=== PATIENT | male | born 1990 | race Caucasian/White ===

== ENCOUNTER 2018-05-09 17:22 | Inpatient (IN) | payer MEDICAID ==
[2018-05-09 18:23] LABS: BASO # 0.1 K/uL (0.0-0.2); BASO % 0.6 % (0.0-2.0); EOS # 0.1 K/uL (0.0-0.7); EOS % 0.5 % (0.0-4.0); HEMOGLOBIN 16.3 g/dL (12.0-18.0); LYMPH # 5.1 K/uL (1.0-4.3); LYMPH % 26.3 % (20.0-40.0); MEAN CELL VOLUME 86.9 fL (80.0-94.0); MEAN CORPUSCULAR HEMOGLOBIN 29.9 pg (27.0-31.0); MEAN CORPUSCULAR HGB CONC 34.4 g/dL (33.0-37.0); MEAN PLATELET VOLUME 7.8 fL (7.2-11.7); NEUT # 13.1 K/uL (1.8-7.0); NEUT % 67.6 % (50.0-75.0); NRBC % 0.1 % (0.0-2.0); RBC 5.47 Mil/uL (4.40-5.90); RED CELL DISTRIBUTION WIDTH 13.2 % (11.5-14.5); WHITE BLOOD COUNT 19.3 K/uL (4.8-10.8)
[2018-05-09 18:44] LABS: BARBITURATES, UR NEGATIVE (NEGATIVE); OPIATES, UR NEGATIVE (NEGATIVE); PHENCYCLIDINE, UR NEGATIVE (NEGATIVE)
[2018-05-09 18:46] LABS: BENZODIAZEPINES, UR POSITIVE (NEGATIVE)
[2018-05-09 18:47] LABS: ALB/GLOB RATIO 1.3 (1.0-2.1); ALBUMIN 5.1 g/dL (3.5-5.0); ALT/SGPT 73 U/L (21-72); AST/SGOT 48 U/L (17-59); BLOOD UREA NITROGEN 18 mg/dL (9-20); CALCIUM 9.7 mg/dl (8.6-10.4); GFR NON-AFRICAN AMERICAN > 60
[2018-05-09 18:59] LABS: SQUAMOUS EPITHIAL < 1 /hpf (0-5); URINE BACTERIA OCC (<OCC); URINE BILIRUBIN NEGATIVE (NEGATIVE); URINE BLOOD NEGATIVE (NEGATIVE); URINE CLARITY Clear (Clear); URINE COLOR Yellow (YELLOW); URINE GLUCOSE (UA) NORMAL (Normal); URINE PROTEIN NEGATIVE (NEGATIVE); URINE UROBILINOGEN NORMAL mg/dL (0.2-1.0)
[2018-05-09 19:02] LABS: URINE LEUKOCYTE ESTERASE NEGATIVE Leu/uL (Negative)
--- NOTE | 2018-05-09 19:52 | C.PDOC ---
History Of Present Illness 28yo male, comes to ER requesting detox from methadone, benzos and cocaine. He denies any suicidal or homicidal ideation and offers no medical complaints at present. Time Seen by Provider: 05/09/18 17:55 Chief Complaint (Nursing): Substance Abuse History Per: Patient History/Exam Limitations: no limitations Onset/Duration Of Symptoms: Persistent Past Medical History Reviewed: Historical Data, Nursing Documentation, Vital Signs Vital Signs: Last Vital Signs Temp 98.7 F 05/09/18 20:11 Pulse 68 05/09/18 20:11 Resp 16 05/09/18 20:11 BP 119/76 05/09/18 20:11 Pulse Ox 95 05/09/18 20:11 - Medical History PMH: Anxiety, Asthma, Bipolar Disorder, HTN, Post Traumatic Stress Disorder Surgical History: No Surg Hx Family History: States: No Known Family Hx - Social History Hx Alcohol Use: No Hx Substance Use: Yes Review Of Systems Except As Marked, All Systems Reviewed And Found Negative. Constitutional: Negative for: Fever, Chills Cardiovascular: Negative for: Chest Pain Respiratory: Negative for: Shortness of Breath Gastrointestinal: Negative for: Abdominal Pain Musculoskeletal: Negative for: Back Pain Neurological: Negative for: Weakness, Numbness Psych: Negative for: Suicidal ideation Physical Exam - Physical Exam Appears: No Acute Distress Skin: Other (multiple large tattoos to neck and face) Head: Atraumatic, Normacephalic Eye(s): bilateral: Normal Inspection Neck: Normal ROM, Supple Chest: Symmetrical Cardiovascular: Rhythm Regular Respiratory: Normal Breath Sounds Gastrointestinal/Abdominal: Normal Exam, Soft Back: Normal Inspection Extremity: Normal ROM Neurological/Psych: Oriented x3 ED Course And Treatment - Laboratory Results Result Diagrams: 05/09/18 18:16 05/09/18 18:16 Lab Interpretation: Abnormal (leukocytosis prob related to cocaine use, tox + cocaine, THC, methadone) O2 Sat by Pulse Oximetry: 95 (RA) Pulse Ox Interpretation: Normal Reevaluation Time: 19:52 Reassessment Condition: Improved - Physician Consult Information Outcome Of Conversation: 2000: d/w Crisis, ok to admit. Librium 100 mg PO Medical Decision Making Medical Decision Making: Plan: -- Labs -- UDS -- Librium 100mg PO -- Ativan 1mg PO 19:51 Patient medically cleared, admitted under Dr. Mira due to benzo, cocaine, marijuana abuse Disposition Doctor Will See Patient In The: Hospital Counseled Patient/Family Regarding: Studies Performed, Diagnosis - Disposition Disposition: HOSPITALIZED Disposition Time: 19:53 Condition: GOOD - Clinical Impression Clinical Impression: Benzodiazepine abuse, Cocaine abuse, Marijuana abuse - Scribe Statement The provider has reviewed the documentation as recorded by the Autumn De La Rosa Provider Attestation: All medical record entries made by the Autumn were at my direction and personally dictated by me. I have reviewed the chart and agree that the record accurately reflects my personal performance of the history, physical exam, medical decision making, and the department course for this patient. I have also personally directed, reviewed, and agree with the discharge instructions and disposition.
--- NOTE | 2018-05-09 20:28 | PCM.BM ---
<Agnes Arzate - Last Filed: 05/09/18 20:25> Treatment Plan Problems - Problems identified on initial assessmt POTIENTIAL FOR AUTONOMIC INSTABILITY RELATED TO ANXYOLTIC WITHDRAWAL Date Initiated: 05/09/18 Time Initiated: 20:28 Assessment reference: NA Status: Active Treatment assets and liabiliti Patient Assests: ADL independent, cognitively intact Patient Liabilities: poor support system, substance abuse, medical problems - Milieu Protocol Maintain good personal hygiene: daily Encourage regular showers, daily Remind patient to perform daily oral care, daily Assist patient to perform ADL's Maintain personal safety: every shift Educate patient to report safety concerns to staff, every shift Monitor environment for contraband/sharps Medication safety: Monitor for expected outcome, potential side effects: every shift, Assess barriers to learning: every shift, Assess readiness for medication education: every shift <Cristela Oscar - Last Filed: 05/11/18 12:46> - Diagnosis (1) Benzodiazepine abuse Status: Acute Interventions: 05/11/18 12:46 * Assess 7x/week regarding severity of withdrawal * Educate regarding risks, benefits, side effects and alternatives of medications * Use Motivational Interviewing for abstinence * Use CBT for relapse prevention * Medication management for withdrawal symptoms * Encourage medication assisted treatment * <Ruth Bravo - Last Filed: 05/12/18 14:19> Family Contact Family involvement: Family/SO is involved Family contact name: girlfriend - Goals for Treatment Patient goals for treatment: Complete detox and resume methadone maintenance while considering inpatient in the future. Discharge/Continuing Care - Education Needs Education Needs: Patient Medication, Patient Diagnosis/Disease Process, Patient Coping Skills, Patient Anger Management skills, Patient Placement options, Patient Community resources, Significant Other Diagnosis/Disease Process, Significant Other Placement options, Significant Other Community resources - Discharge Discharge Criteria: No longer exhibiting s/s of withdrawal, Reduction of target symptoms Discharge to:: Home - Treatment Team Participation Patient/Family/SO Statement: 05/12/18 14:18 "I wanna go inpatient at some point but I wanna see where things are with my f iance first." Discussed with Family/SO: No Was Patient/Family/SO present at Treatment Team Meeting: Yes
--- NOTE | 2018-05-10 11:50 | PCM.PSYCH ---
Initial Psychiatric Evaluation - Initial Psychiatric Evaluation Type of Admission: Voluntary Legal Status: Capacity Chief Complaint (in patient's own words): " I want to get clean of benzos" History of Present Illness and Precipitating Events: This is a 28 year-old male, single and unemployed, who lives on his own. The patient is here for benzo detox. He has been using Xanax 6-8 mg every day in the last 6 months. He also admits using marijuana and cocaine occasionally. He states that he has been treated with methadone in the last 3 years. He denies any heroin use in the last 3 years but he reports that he used heroin for about 6 years in the past. Patient stated that he tried detox 5 times in the past. The last time he had detox was 3 years ago. He reports being clean for 14 months after the last detox but later, he relapsed. Patient has been hospitalized multiple times in the past due to drug over dose but denies any psychiatric hospitalization. He wants to get off of benzos. Patient complains about headache and muscle twitching. He is also sensitive to the light. He feels anxious and scared but denies suicidal or homicidal ideation. Past Medical Hx: denies. Psych Hx: Depression, PTSD, anxiety Family Hx: Mom when he was 5. Father killed himself 3 days after his mother's . Brother killed himself by overdosing alcohol and benzo. Current Medications: Active Medications Generic Name Dose Route Start Last Admin Trade Name Freq PRN Reason Stop Dose Admin Ibuprofen 600 mg 05/09/18 20:33 05/09/18 21:02 Motrin Tab PO 600 mg Q6 PRN Administration Pain Lorazepam 1 mg 05/09/18 20:30 05/10/18 09:51 Ativan PO 1 mg Q4 PRN Administration BENZO WITHDRAWAL Trazodone HCl 100 mg 05/09/18 20:34 05/09/18 21:01 Desyrel PO 100 mg HS PRN Administration Insomnia Past Psychiatric History - Past Psychiatric History Previous Treatment History: Inpatient Pertinent Medical Hx (Current Medical&Sleep Prob, Allergies): Allergies Allergy/AdvReac Type Severity Reaction Status Date / Time No Known Allergies Allergy Verified 05/09/18 17:34 Methadone [Methadose] 200 mg PO DAILY 05/09/18 Review of Systems - Review of Systems All systems: reviewed and no additional remarkable complaints except - Psychiatric Psychiatric: Anxiety, Irritability. absent: Suicidal Ideation Mental Status Examination - Personal Presentation Personal Presentation: Looks stated age - Affect Affect: Constricted - Motor Activity Motor Activity: Calm - Reliability in Providing Information Reliability in Providing Information: Good - Speech Speech: Organized - Mood Mood: Anxious - Formal Thought Process Formal Thought Process: No Impairment - Obsessions/Compulsions Obsessions: No Compulsions: No - Cognitive Functions Orientation: Person, Place, Situation, Time Sensorium: Alert Attention/Concentration: Attentive Abstract Thinking: Chestnut Estimate of Intelligence: Below average Judgement: Imparied, as evidence by: Poor judgement, Imparied, as evidence by: Lack of insight into illness - Risk Risk: Withdrawal, Diminished functioning - Limitations Limitations: Living alone DSM 5 DX - DSM 5 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
[2018-05-10] MEDS ORDERED: Aluminum Hydroxide/Magnesium Hydroxide Susp (30 mL) PO PRN (12:38)
[2018-05-10] MEDS: Methadone 40 mg Tab PO SCH (13:09)
[2018-05-10] MEDS: Albuterol HFA 90 mcg/actuation (8 g) INH PRN (22:54)
[2018-05-11] MEDS: Methadone 40 mg Tab PO SCH (09:56)
--- NOTE | 2018-05-11 12:52 | PCM.PYCHPN ---
Psychiatric Progress Note - Psychiatric Progress Note Patient seen today, length of contact: 16 min Patient Chief Complaint: "I am not doing OK" Problems Identified/Issues Discussed: The pt is seen, chart reviewed, case discussed with staff. The pt is compliant with medications and reports no side-effects. Symptoms are improving but needs more time to stabilize. Pt attends groups and activities. Support given, psycho-education provided. After care discussed. Medication Change: Yes (detox changes daily) Medical Record Reviewed: Yes Mental Status Examination - Cognitive Function Orientation: Person, Place, Situation, Time Memory: Intact Attention: WNL Concentration: WNL Association: WNL Fund of Knowledge: WNL - Mood Mood: Anxious - Affect Affect: Constricted - Speech Speech: Slurred - Formal Thought Process Formal Thought Process: No Impairment - Suicidal Ideation Suicidal Ideation: No - Homicidal Ideation Homicidal Ideation: No Goal/Treatment Plan - Goal/Treatment Plan Need for Continued Stay: Discharge may exacerbated symptoms, Severe functional impairment Progress Toward Problem(s) and Goals/Treatment Plan: Sedative hypnotic use disorder severe CBT Psychoeducation Supportive therapy, individual therapy Use IA for abstinence Sedative hypnotic withdrawal uncomplicated CBT Psychoeducation Supportive therapy, individual therapy Ativan when necessary Start Ativan taper Start folic acid/thiamine/multivitamin Cocaine use disorder severe CBT Psychoeducation Supportive therapy, individual therapy Use IA for abstinence
[2018-05-11] MEDS: Albuterol HFA 90 mcg/actuation (8 g) INH PRN ×2 (14:13→23:18)
[2018-05-12] MEDS: Methadone 40 mg Tab PO SCH (10:24)
--- NOTE | 2018-05-12 12:23 | PCM.PYCHPN ---
Psychiatric Progress Note - Psychiatric Progress Note Patient seen today, length of contact: 16 min Patient Chief Complaint: "I am very very anxious" Problems Identified/Issues Discussed: The pt is seen, chart reviewed, case discussed with staff. The pt is compliant with medications and reports no side-effects. Symptoms are improving but needs more time to stabilize. Still having breakthrough sxs After care discussed, support and psychoeducation given. Medication Change: Yes (detox changes daily) Medical Record Reviewed: Yes Mental Status Examination - Cognitive Function Orientation: Person, Place, Situation, Time Memory: Intact Attention: WNL Concentration: Poor Association: WNL Fund of Knowledge: WNL - Mood Mood: Anxious - Affect Affect: Constricted - Speech Speech: Slurred - Formal Thought Process Formal Thought Process: No Impairment - Suicidal Ideation Suicidal Ideation: No - Homicidal Ideation Homicidal Ideation: No Goal/Treatment Plan - Goal/Treatment Plan Need for Continued Stay: Discharge may exacerbated symptoms, Severe functional impairment Progress Toward Problem(s) and Goals/Treatment Plan: Sedative hypnotic use disorder severe CBT Psychoeducation Supportive therapy, individual therapy Use HI for abstinence Sedative hypnotic withdrawal uncomplicated CBT Psychoeducation Supportive therapy, individual therapy Ativan when necessary Start Ativan taper Start folic acid/thiamine/multivitamin Cocaine use disorder severe CBT Psychoeducation Supportive therapy, individual therapy Use HI for abstinence
[2018-05-12 14:08] LABS: BASO # 0.1 K/uL (0.0-0.2); BASO % 0.8 % (0.0-2.0); EOS # 0.2 K/uL (0.0-0.7); EOS % 1.6 % (0.0-4.0); HEMOGLOBIN 15.5 g/dL (12.0-18.0); LYMPH % 23.5 % (20.0-40.0); MEAN CELL VOLUME 87.2 fL (80.0-94.0); MEAN CORPUSCULAR HGB CONC 34.5 g/dL (33.0-37.0); MEAN PLATELET VOLUME 8.6 fL (7.2-11.7); MONO # 0.7 K/uL (0.0-0.8); MONO % 5.3 % (0.0-10.0); NEUT # 8.8 K/uL (1.8-7.0); NEUT % 68.8 % (50.0-75.0); NRBC % 0.1 % (0.0-2.0); RBC 5.17 Mil/uL (4.40-5.90); RED CELL DISTRIBUTION WIDTH 13.2 % (11.5-14.5); WHITE BLOOD COUNT 12.9 K/uL (4.8-10.8)
[2018-05-12 14:26] LABS: ALB/GLOB RATIO 1.2 (1.0-2.1); ALBUMIN 4.8 g/dL (3.5-5.0); ALT/SGPT 52 U/L (21-72); AST/SGOT 33 U/L (17-59); BLOOD UREA NITROGEN 10 mg/dL (9-20); CALCIUM 9.7 mg/dl (8.6-10.4); GFR NON-AFRICAN AMERICAN > 60
--- NOTE | 2018-05-12 15:07 | RAD ---
Date of service: 05/12/2018 HISTORY: Coughing. has substance abuse COMPARISON: No prior. TECHNIQUE: Chest PA and lateral FINDINGS: LUNGS: No active pulmonary disease. PLEURA: No significant pleural effusion identified. No pneumothorax apparent. CARDIOVASCULAR: Normal. OSSEOUS STRUCTURES: No significant abnormalities. VISUALIZED UPPER ABDOMEN: Normal. OTHER FINDINGS: None. IMPRESSION: No active disease.
[2018-05-12] MEDS: Albuterol HFA 90 mcg/actuation (8 g) INH PRN (22:19)
[2018-05-13] MEDS: Methadone 40 mg Tab PO SCH (10:21)
[2018-05-13] MEDS: Albuterol HFA 90 mcg/actuation (8 g) INH PRN ×2 (11:20→21:45)
[2018-05-14] MEDS: Methadone 40 mg Tab PO SCH (09:06)
[2018-05-14] MEDS: Albuterol HFA 90 mcg/actuation (8 g) INH PRN ×2 (13:07→17:02)
[2018-05-15] MEDS: Methadone 40 mg Tab PO SCH (09:25)
[2018-05-15 10:46] VITALS: TEMP 97.8
[2018-05-15 13:12] VITALS: RESP 18
[2018-05-15 16:45] VITALS: BP 127/87; PULSE 82; O2SAT 96
[2018-05-15] MEDS: Albuterol HFA 90 mcg/actuation (8 g) INH PRN (17:26)
--- NOTE | 2018-05-15 19:44 | PCM.PYCHDC ---
Mental Status Examination - Mental Status Examination Orientation: Person, Place, Situation, Time Memory: Intact Mood: Anxious Affect: Other (Patient was stable with little anxiety for being discharge from the hospital) Speech: Appropriate Attention: WNL Concentration: WNL Association: WNL Fund of Knowledge: WNL Formal Thought Process: No Impairment Description of patient's judgement and insight: Fair Psychotic Thoughts and Behaviors: None Suicidal Ideation: No Current Homicidal Ideation?: No Discharge Summary - Discharge Note Reason for Hospitalization: Cocaine use disorder Cannabis use disorder Anxiolytics use disorder Laboratory Data: Reviewed Consultations:: List each consultation separately and include: 1. Reason for request. 2. Findings. 3. Follow-up Summary of Hospital Course include:: 1. Description of specific treatment plan utilized for patients during their course of treatmen. 2. Summarize the time- course for resolution of acute symptoms and/or regressed behaviors. 3. Describe issues identified and worked on during hospitalization. 4. Describe medication utilized. 5. Describe medical problems identified and treated. 6. Reassessment of suicide risk Summary of Hospital Course: This is a 28 year-old male, single and unemployed, who lives on his own. The patient is here for benzo detox. He has been using Xanax 6-8 mg every day in the last 6 months. He also admits using marijuana and cocaine occasionally. He states that he has been treated with methadone in the last 3 years. He denies any heroin use in the last 3 years but he reports that he used heroin for about 6 years in the past. Patient stated that he tried detox 5 times in the past. The last time he had detox was 3 years ago. He reports being clean for 14 months after the last detox but later, he relapsed. Patient has been hospitalized multiple times in the past due to drug over dose but denies any psychiatric hospitalization. He wants to get off of benzos. Patient complains about headache and muscle twitching. He is also sensitive to the light. He feels anxious and scared but denies suicidal or homicidal ideation. Past Medical Hx: denies. Psych Hx: Depression, PTSD, anxiety Family Hx: Mom when he was 5. Father killed himself 3 days after his mother's . Brother killed himself by overdosing alcohol and benzo. During his stay in the hospital patient was treated with his maintenance dose of methadone which was 200 mg daily. Also he was treated with Ativan and other when necessary medications. With the above treatment patient started feeling better. Today patient was stable and ready for discharge from the hospital. The time of evaluation and discharge, patient was awake alert oriented 3, had no delusions, no auditory or visual hallucinations, no suicidal ideations or homicidal ideations. Patient was stable with little anxiety of being discharge from the hospital. Patient will go to [facility] for follow-up care after discharge from the hospital. - Final Diagnosis (DSM 5) Condition upon Discharge: GOOD Disposition: HOME/ ROUTINE Prescriptions/Medication Reconciliation: Gabapentin [Neurontin] 400 mg PO TID #90 cap Mirtazapine [Remeron] 15 mg PO HS #30 tab traZODone [Desyrel] 100 mg PO HS PRN #30 tab PRN Reason: Insomnia - Smoking Cessation Smoking Cessation Medication prescribed: Yes - Antipsychotic Medications Pt discharged on 2 or more routine antipsychotic medications: No
--- NOTE | 2018-05-15 22:35 | PCM.PYCHPN ---
Psychiatric Progress Note - Psychiatric Progress Note Patient seen today, length of contact: 17 min Patient Chief Complaint: "I am not well" Problems Identified/Issues Discussed: The pt is seen, chart reviewed, case discussed with staff. Support given, CBT and NE used briefly No new symptoms reported, improving slowly and needs more time Anxiety management discussed No SEs from medications, risks discussed. After care discussed Medication Change: Yes (detox changes daily) Medical Record Reviewed: Yes Mental Status Examination - Cognitive Function Orientation: Person, Place, Situation, Time Memory: Intact Attention: WNL Concentration: Poor Association: WNL Fund of Knowledge: WNL - Mood Mood: Anxious - Affect Affect: Constricted - Speech Speech: Slurred - Formal Thought Process Formal Thought Process: No Impairment - Suicidal Ideation Suicidal Ideation: No - Homicidal Ideation Homicidal Ideation: No Goal/Treatment Plan - Goal/Treatment Plan Need for Continued Stay: Discharge may exacerbated symptoms, Severe functional impairment Progress Toward Problem(s) and Goals/Treatment Plan: Sedative hypnotic use disorder severe CBT Psychoeducation Supportive therapy, individual therapy Use NE for abstinence Sedative hypnotic withdrawal uncomplicated CBT Psychoeducation Supportive therapy, individual therapy Ativan when necessary Start Ativan taper Start folic acid/thiamine/multivitamin Cocaine use disorder severe CBT Psychoeducation Supportive therapy, individual therapy Use NE for abstinence
== END 2018-05-15 17:40 | disposition home or self-care (01) | DRG 748 ==
LOC: C.ER 17:22 → C.7D 19:51
PROVIDERS: ADMIT Psychiatry & Neurology Psychiatry; ATTEND Psychiatry & Neurology Psychiatry
PROC: HZ2ZZZZ Detoxification Services for Substance Abuse Treatment (ICD-10-PCS; principal; 2018-05-09)
PROC: HZ59ZZZ Individual Psychotherapy for Substance Abuse Treatment, Supportive (ICD-10-PCS; 2018-05-09)
PROC: HZ46ZZZ Group Counseling for Substance Abuse Treatment, Psychoeducation (ICD-10-PCS; 2018-05-09)
PROC: HZ80ZZZ Medication Management for Substance Abuse Treatment, Nicotine Replacement (ICD-10-PCS; 2018-05-09)
DX: F13.230 Sedative, hypnotic or anxiolytic dependence with withdrawal, uncomplicated (principal); F14.20 Cocaine dependence, uncomplicated; F12.10 Cannabis abuse, uncomplicated; F43.10 Post-traumatic stress disorder, unspecified; F31.9 Bipolar disorder, unspecified; F17.210 Nicotine dependence, cigarettes, uncomplicated; I10 Essential (primary) hypertension; J45.909 Unspecified asthma, uncomplicated